=== PATIENT | female | born 1930 | race Caucasian/White ===

== ENCOUNTER 2016-05-21 07:52 | Day surgery (SDC) | payer OTHER ==
[2016-05-18 16:13] VITALS: BMI 17.6
[2016-05-21] MEDS ORDERED: LIDOCAINE HCL/EPINEPHRINE/PF 20 ML VIAL ONE (08:48)
[2016-05-21] MEDS ORDERED: MIDAZOLAM HCL 2 MG/2 ML SINGLE DOSE VIAL ONE ×2 (09:44)
[2016-05-21] MEDS ORDERED: PROPOFOL 20 ML ONE ×2 (09:44)
[2016-05-21] MEDS ORDERED: ePHEDrine SULFATE 50 MG/1 ML AMPULE ONE (10:09)
[2016-05-21] MEDS ORDERED: LACTATED RINGERS SOLUTION 1,000 ML IV SCH (11:45)
[2016-05-21] MEDS ORDERED: ONDANSETRON 4 MG/2 ML VIAL IVPB PRN (11:46)
[2016-05-21] MEDS ORDERED: oxyCODONE HCL 5 MG TABLET PO PRN ×2 (11:46→11:47)
[2016-05-21 15:00] VITALS: TEMP 98.8
[2016-05-21 15:04] VITALS: BP 109/54; PULSE 68
--- NOTE | 2016-05-21 15:40 | OP ---
DATE OF OPERATION: 05/21/2016 TITLE OF PROCEDURE: Division and inset, 2nd stage reconstruction, of left nasolabial flap. ATTENDING SURGEON: Burak Erwin M.D. CUSTOMER EXPERIENCE LEADER: None. ANESTHESIA: General endotracheal anesthesia plus 8 mL 2% lidocaine with 1:100,000 epinephrine injected locally prior to surgery. Patient is seen in the holding area, counseled on all risks, benefits, and alternatives for the procedure. She is marked. She understands, agrees to proceed. Brought to the operating room, placed in the supine position. I am brought into the room after anesthesia is administered. Position is carefully checked by surgical and anesthesia teams. All pressure points are carefully padded with padding devices. Sequential compression stockings are applied. Patient received a gram of Ancef preoperatively. Timeout is called. Patient, procedure, incision sites are verified. DESCRIPTION OF PROCEDURE: The staged nasolabial flap is divided at its bridging point, at which point the proximal portion of the flap is then incised. Skin flaps are elevated both medially and laterally. Hemostasis is achieved with bipolar cautery only. The donor site is then closed primarily with a series of interrupted buried deep dermal 5-0 Vicryl suture followed by a running 6-0 nylon suture. Attention is then directed toward the distal portion of the flap, which is to be finally inset. The flap is judiciously thinned. A segment of the residual ala is resected superficially in order to allow the flap to conform to nasal aesthetic subunits. The flap is then trimmed to conform to the new defect, where it is then patterned and inset with a series of interrupted 6-0 nylon suture. Flap is pink and viable at the end of the procedure. The nostril is patent. The dressed with bacitracin and Xeroform and 4x4 gauze with Hypafix tape. She is awoken from anesthesia, transferred to recovery. BURAK ERWIN M.D. [id number]
--- NOTE | 2016-05-26 11:12 | PATH ---
Surgical Pathology Report Patient Name: GURDEEP DUARTE [facility]. Rec. #: [id number] /Age/Gender: 1930 (Age: 85) / F Account: [id number] Location: [facility] Taken: 05/21/2016 Received: 05/21/2016 Reported: 05/26/2016 Physicians: Vinh Crump Specimen(s) Received PROXIMAL FLAP OF CHEEK Clinical History Basal cell carcinoma Final Diagnosis CHEEK, PROXIMAL FLAP, EXCISION: SKIN SHOWING ULCERATION WITH GRANULATION TISSUE FORMATION AND SOLAR ELASTOSIS. NO RESIDUAL BASAL CELL CARCINOMA IS IDENTIFIED. Electronically Signed Carrie Ayers M.D. Gross Description Received in formalin, labeled "proximal flap of cheek," are 3 thompson, irregular, unoriented portions of skin ranging from 1.3 x 0.5 cm to 4.0 x 2.0 cm. The specimens display underlying yellow, lobulated soft tissue. The smallest portion displays an undesignated long suture. The epidermal surface is unremarkable. The smaller specimen is inked green. The medium specimen displays a 2.2 x 0.9 cm brown, ulcerated lesion. There are no sutures present on the medium specimen. The medium specimen is inked blue. The largest specimen displays a focally ulcerated lesion. There is a short, undesignated suture on the border of the lesion. The larger specimen is inked black. The specimens are serially sectioned and petroleum products sales representative sections are submitted in 3 cassettes. /05/22/2016 saudi05/22/2016
== END 2016-05-21 14:45 | disposition home or self-care (01) ==
LOC: FASU 07:52
PROVIDERS: ATTEND Plastic Surgery
PROC: 0HX1XZZ Transfer Face Skin, External Approach (ICD-10-PCS; principal; 2016-05-21 10:18)
DX: C44.311 Basal cell carcinoma of skin of nose (principal)
CPT/HCPCS: 88304-TC; 94760

== ENCOUNTER 2019-01-05 16:15 | Emergency (ER) | payer OTHER ==
--- NOTE | 2019-01-05 16:37 | PDOC ---
History of Present Illness - General Chief Complaint: Injury Stated Complaint: Injury Time Seen by Provider: 01/05/19 16:36 Past History - Past Medical History Allergies/Adverse Reactions: Allergies Allergy/AdvReac Type Severity Reaction Status Date / Time No Known Allergies Allergy Verified 01/05/19 17:16 Home Medications: Ambulatory Orders Atorvastatin Ca [Lipitor] 20 mg PO DAILY 05/21/15 Brinzolamide [Azopt] 5 ml OP DAILY 05/21/15 Calcium Carbonate/Vitamin D3 [Calcium 600-Vit D3 200 Tablet] 1 each PO DAILY 04/06 Ezetimibe [Zetia] 10 mg PO DAILY 05/21/15 Garlic 1 each PO DAILY 05/21/15 Latanoprost 0.005% Eye Drops [Xalatan 0.005% Eye Drops -] 1 drop OU DAILY Metoprolol Succinate [Toprol XL -] 50 mg PO DAILY 05/21/15 Raloxifene HCl [Evista] 60 mg PO DAILY 05/21/15 Ranitidine HCl [Zantac] 150 mg PO DAILY 05/21/15 Triamterene/Hydrochlorothiazid [Triamterene-Hctz 37.5-25 mg Cp] 1 each PO Q48H 05/21/15 Valsartan [Diovan] 80 mg PO DAILY 05/21/15 Cefadroxil 500 mg PO BID #0 capsule 05/21/16 Anemia: No Asthma: No Cancer: Yes (Basal Cell of Nose) Cardiac Disorders: Yes (PPM) CVA: No COPD: No CHF: No Dementia: No Diabetes: No GI Disorders: Yes (POLYPS, GASTRITIS) Disorders: No HTN: Yes Hypercholesterolemia: Yes Liver Disease: No Seizures: No Thyroid Disease: No - Surgical History Abdominal Surgery: No Appendectomy: Yes Cardiac Surgery: No Cholecystectomy: No Lung Surgery: No Neurologic Surgery: No Orthopedic Surgery: No - Psycho Social/Smoking Cessation Hx Smoking History: Never smoked Hx Alcohol Use: Yes (WINE AT TIMES) Drug/Substance Use Hx: No Substance Use Type: None Hx Substance Use Treatment: No ED Treatment Course - LABORATORY CBC & Chemistry Diagram: 01/05/19 18:15 01/05/19 18:15 Medical Decision Making - Medical Decision Making 01/05/19 17:14 HPI: 88yo F hx HTN, Afib s/p pacemaker on eliquis, HLD, and glaucoma BIBA from home c /o L shoulder and upper arm pain s/p mechanical fall at 1600 today with head injury, LOC, and subsequent nausea. Pt was in [facility] prior to fall, ambulates normally without assistance. Pt was walking down stairs at home and lost her footing briefly, grabbed the railing, and the railing pulled off causing her to fall down the last 3 steps, landing on her L shoulder. Endorses brief LOC, head injury, and nausea since fall. Denies head pain, neck pain, back pain, or other pains or injuries. Denies preceding CP or palpitations or dizziness or vertigo. Denies seizure like activity including tongue-biting, urinary incontinence, or seizure-like movements. Denies hx of syncope or falls. Denies fever, chills, fatigue, headache, dizziness, numbness/tingling, weakness, vision changes, shortness of breath, cough, chest pain, palpitations, leg swelling, abdominal pain, blood in stool, diarrhea, constipation, vomiting, dysuria, hematuria, confusion. ROS: Constitutional: Negative for chills, fever, fatigue, diaphoresis. HENT: Negative for sore throat, rhinorrhea, congestion. Eyes: Negative for visual disturbance. Respiratory: Negative for shortness of breath, cough, and wheezing. Cardiovascular: Negative for chest pain, palpitations, and leg swelling. Gastrointestinal: Positive for nausea. Negative for abdominal pain, blood in stool, constipation, diarrhea, and vomiting. Genitourinary: Negative for dysuria, flank pain, and hematuria. Musculoskeletal: Positive for L humerus and shoulder pain. Negative for myalgias , back pain, and neck pain. Skin: Negative for rash. Neurological: Negative for light-headedness, dizziness, vertigo, syncope, weakness, numbness and headaches. Psychiatric/Behavioral: Negative for behavioral problems and confusion. PE: Gen: Alert, NAD, comfortable-appearing. HEENT: PERRL, EOMI, MMM, NCAT. No conjunctival pallor. Sclera are non-icteric. No raccoon eyes, Underwood's sign, CSF jaime/rhinorrhea, or hemotympanum. CV: Regular rate and rhythm. No murmurs, rubs, or gallops. PULM: No resp distress. CTAB, no wheezes, rales, or rhonchi. ABD: soft, NT/ND, no rebound tenderness or guarding, no CVA tenderness. BACK: No TTP of c/t/l-spine. No step-offs or deformities. MSK: No bony deformities. Pelvis intact and stable. 2+ pulses in all extremities. NEURO: AAOx3. PERRL. CN 2-12 intact. 5/5 strength in all extremities. Sensation to light touch intact in all extremities. No pronator drift. No dysmetria. No dysdiadochokinesia. No abnormal nystagmus. EXTREMITIES: No cyanosis. No clubbing. No calf tenderness. LUE: full ROM of shoulder and elbow and wrist, <2 sec cap refill, swelling of LUE, no TTP, no ecchymoses, sensation to light touch intact. PSYCH: Normal mood and thought pattern. SKIN: Warm and dry. Normal capillary refill. No rashes. No jaundice. +small skin tear to L gray, nonbleeding MDM: 88yo F hx HTN, Afib s/p pacemaker on eliquis, HLD, and glaucoma BIBA from home with L shoulder and upper arm pain s/p mechanical fall at 1600 today with head injury, LOC, and nausea. Hemodynamically stable, afebrile, neurologically intact. -CTH, CT c-spine -XR L shoulder and humerus -CBC,CMP,Coags,T&S -Observe 6hrs from fall (till 10pm) -Assess gait -Dispo: pending w/u 01/05/19 18:33 CTs and XRs read by me - no acute pathology Pt comfortable. States feels better. Denies any nausea or pain. 01/05/19 19:37 Labs reviewed. Of note, BUN 34.1, Cr 1.4 (baseline 1.2-1.3). Pt hydrating orally and eating. 01/05/19 21:01 Pt comfortable. No complaints. Eating crackers and drinking water. 01/05/19 21:38 Pt comfortable. No complaints. CN 2-12 intact. 5/5 strength in all extremities. Sensation to light touch intact in all extremities. No pronator drift. No dysmetria. No dysdiadochokinesia. No abnormal nystagmus. 01/05/19 21:58 Pt ambulating normally. Will dc home with PCP f/u. Return precautions given. Pt understands all dc instructions and all questions were answered. Discharge - Discharge Information Problems reviewed: Yes Clinical Impression/Diagnosis: Fall, Head injury due to trauma Condition: Improved Disposition: HOME - Admission No - Follow up/Referral Referrals: Bruce Canela MD [Primary Care Provider] - - Patient Discharge Instructions Patient Printed Discharge Instructions: How to Prevent Falls, DI for Closed Head Injury Additional Instructions: You have been seen in the Emergency Department for your fall. Your physical exam , labs, and CT scan of your head and neck show no signs concerning for an emergent condition such as a brain bleed at this time. Your X-ray of your left shoulder and arm shows no signs of fracture or dislocation. Your pain is most likely due to a bruise of the soft tissue. If you experience pain, you can take Tylenol or Ibuprofen as directed on the medication bottle, but do not exceed 3g of Ibuprofen or 4g of Tylenol a day. Follow-up with your primary care doctor within 1 week. Return to the ED immediately if you experience worsening pain not controlled by over the counter medications, numbness or tingling, weakness, fever, vomiting, difficulty walking or talking, or any other new or worsening symptom. - Post Discharge Activity
[2019-01-05 17:16] VITALS: BP 165/73; PULSE 64; TEMP 97.2; BMI 22.1
[2019-01-05 18:35] LABS: BASO % 0.3 % (0-2.0); EOS % 0.6 % (0-4.5); HEMOGLOBIN 11.9 GM/dL (10.7-15.3); LYMPH % 14.4 % (8-40); MCH 32.4 pg (25.7-33.7); MEAN CELL VOLUME 98.1 fl (80-96); MEAN PLT VOLUME 9.1 fl (7.5-11.1); MONO % 9.8 % (3.8-10.2); NEUT % 74.9 % (42.8-82.8); PLATELET COUNT 202 K/MM3 (134-434); RBC 3.67 M/mm3 (3.60-5.2); RDW 13.1 % (11.6-15.6); WHITE BLOOD COUNT 7.3 K/mm3 (4.0-10.0)
[2019-01-05 18:51] LABS: INR 1.21 (0.83-1.09); PROTHROMBIN TIME (PATIENT) 14.3 SEC (9.7-13.0)
[2019-01-05 18:54] LABS: ACTIVATED PTT 36.1 SECONDS (25.2-36.5)
[2019-01-05 19:04] LABS: ALBUMIN 3.6 g/dl (3.4-5.0); BILIRUBIN,TOTAL 0.4 mg/dL (0.2-1); BLOOD UREA NITROGEN 34.1 mg/dL (7-18); CREATININE 1.4 mg/dL (0.55-1.3); POTASSIUM 4.3 mmol/L (3.5-5.1); TOT PROT 6.7 g/dl (6.4-8.2)
--- NOTE | 2019-01-05 19:27 | PDOC ---
Documentation entered by Dariana Cruz SCRIBE, acting as scribe for Celina Whipple DO. Celina Whipple DO: This documentation has been prepared by the Nancy castañeda Brenda, SCRIBE, under my direction and personally reviewed by me in its entirety. I confirm that the documentation accurately reflects all work, treatment, procedures, and medical decision making performed by me. Attending Attestation - Resident Resident Name: Cele Barajas - ED Attending Attestation I have performed the following: I have examined & evaluated the patient, The case was reviewed & discussed with the resident, I agree w/resident's findings & plan, Exceptions are as noted - HPI HPI: 01/05/19 19:16 The patient is an 88 year old female, with a significant PMH of HTN, AFib s/p pacemaker on eliquis, HLD, and glaucoma who presents to the emergency department [facility] from home with left shoulder pain and upper left arm pain after a mechanical fall, occurring at 4:00pm today. Patient also reports experiencing LOC, head injury, and subsequent nausea. Patient states walking down stairs at home and losing balance on her foot briefly, at which time she grabbed the railing, but the rail could not hold o and pulled off, causing her to fall down 3 steps, landing on her left shoulder. The patient denies chest pain, shortness of breath, headache and dizziness. Denies head pain or neck pain. Denies fever, chills, vomiting, diarrhea and constipation. Denies seizure activity. Denies dysuria, frequency, urgency and hematuria. Allergies: NKA Past surgical history:Appendectomy Social history: No tobacco use, wine at time, no illicit drug use. PCP:Rola - Physicial Exam PE: 01/05/19 19:08 GENERAL: Awake, alert, and fully oriented, in no acute distress HEAD: No signs of trauma EYES: PERRLA, EOMI, sclera anicteric, conjunctiva clear ENT: Auricles normal inspection, hearing grossly normal, nares patent, oropharynx clear without exudates. Moist mucosa NECK: Normal ROM, supple, no lymphadenopathy, JVD, or masses LUNGS: Breath sounds equal, clear to auscultation bilaterally. No wheezes, and no crackles HEART: (+) Irregularly irregular. Regular rate and rhythm, normal S1 and S2, no murmurs, rubs or gallops ABDOMEN: Soft, nontender, normoactive bowel sounds. No guarding, no rebound. No masses EXTREMITIES: Pelvis stable. Normal range of motion, no edema. No clubbing or cyanosis. No cords, erythema, or tenderness NEUROLOGICAL: CT and L Spine nontender, no deformities. Cranial nerves II through XII grossly intact. Normal speech. SKIN: (+) Small abrasion on forehead, no hematoma. Warm, Dry, normal turgor, no rashes. - Medical Decision Making 01/05/19 19:19 I, Dr. Celnia Whipple, DO, attest that this document has been prepared under my direction and personally reviewed by me in its entirety. I further attest, that it accurately reflects all work, treatment, procedures and medical decision -making performed by me. a/p: 88yo female with a mechanical fall down 3 stairs -hit the front of her head -on eliquis -no loc -called son who called 911 -has not ambulated since the fall -sent for head ct and c spine ct -will send labs -will monitor for 6 hrs in the ER with repeat neuro checks -will ambulate and po challenge -was nauseated after the fall - has since resolved -will monitor and reassess 01/05/19 19:27 labs reviewed pt head ct without acute findings no c spine fx christal continue to monitor until around 10p 01/05/19 21:59 pt neuro intact ambulated with a steady gait stable for dc to home
== END 2019-01-05 22:27 | disposition home or self-care (01) ==
LOC: FER 16:15 → JER 16:15
DX: S09.90XA Unspecified injury of head, initial encounter (principal); W10.9XXD Fall (on) (from) unspecified stairs and steps, subsequent encounter; Y93.9 Activity, unspecified; Y92.009 Unspecified place in unspecified non-institutional (private) residence as the place of occurrence of the external cause; I48.91 Unspecified atrial fibrillation; Z79.01 Long term (current) use of anticoagulants; I10 Essential (primary) hypertension; Z95.0 Presence of cardiac pacemaker; E78.5 Hyperlipidemia, unspecified; H40.9 Unspecified glaucoma
CPT/HCPCS: 36415; 70450-TC; 72125-TC; 73030-TC-LT-FY; 73060-TC-LT-FY; 80053; 85025; 85610; 85730; 86850; 86900; 86901; 99282-25